=== PATIENT | female | born 1990 | race Caucasian/White ===

== ENCOUNTER 2019-10-22 19:05 | Emergency (ER) | payer MEDICAID ==
[~2019-10-22] VITALS: Ht 162.6 cm; Wt 115.2 kg
[2019-10-22 19:11] VITALS: BP 140/75
--- NOTE | 2019-10-22 19:16 | NUR ---
PT TAKEN TO BED 1
--- NOTE | 2019-10-22 19:23 | NUR ---
29 Y/O FEMALE C/O DRY/ITCHY PAINFUL RASH THROUGHOUT BODY X 2MONTHS. DENIES USE OF NEW LOTIONS/SOAPS, ETC. DENIES ANY NEW FOODS. -N/V/D. NOTED L HAND DRYNESS AND SMALL BUMPS. LEFT BREAST BUMPS WITH SOME REDNESS. NOTED LEG DRYNESS AND SCRATCHES. ERMD MADE AWARE OF STATUS. SIDE RAILSX1. HX: NONE RX: NONE NKDA
--- NOTE | 2019-10-22 19:33 | NUR ---
Dr. Moss examining patient.
[2019-10-22 19:50] VITALS: BP 135/69
--- NOTE | 2019-10-22 19:50 | NUR ---
Patient discharged with v/s stable. Written and verbal after care instructions given and explained. Patient alert, oriented and verbalized understanding of instructions. Ambulatory with steady gait. All questions addressed prior to discharge. ID band removed. Patient advised to follow up with PMD. Rx of HYDROCORTISONE 2.5% TOPICAL OINTMENT; ZYRTEC 10 MG given. Patient educated on indication of medication including possible reaction and side effects. Opportunity to ask questions provided and answered.
== END 2019-10-22 19:50 | disposition home or self-care (01) ==
LOC: MED 19:05
DX: L30.9 Dermatitis, unspecified (principal)
CPT/HCPCS: 99282

== ENCOUNTER 2020-04-27 14:55 | Emergency (ER) | payer MEDICAID ==
[~2020-04-27] VITALS: Ht 165.1 cm; Wt 113.4 kg
[2020-04-27 15:00] VITALS: BP 145/73
--- NOTE | 2020-04-27 15:05 | NUR ---
C/O INTERMITTENT CENTER UMBILLICAL/EPIGASTRIC "BURNING" ABD PAIN 5/10 X1 MONTH THAT IS MADE WORSE WITH EATING OR DRINKING ALCOHOL ACCOMPANIED BY OCCASIONAL N/V. DENIES FEVER/DIARRHEA. BOWEL SOUNDS PRESENT X4. ABD SOFT FLAT AND NON TENDER TO PALPATION. LBM TODAY AND REGULAR. BED IN LOW POSITION, SIDE RAIL UP X1.
[2020-04-27] MEDS ORDERED: DICYCLOMINE HCL LIQUID 20 MG, ALUMINUM HYD/MAG/SIMETHICONE 30 ML, LIDOCAINE VISCOUS 2% ... PO ONE ×3 (15:15)
[2020-04-27] MEDS ORDERED: DICYCLOMINE HCL LIQUID 10 MG/5 ML UDC ONE ×2 (15:17→15:18)
[2020-04-27] MEDS ORDERED: ALUMINUM HYD/MAG/SIMETHICONE 30 ML UDC ONE ×2 (15:17→15:18)
[2020-04-27] MEDS ORDERED: LIDOCAINE VISCOUS 2% 20 ML UDC ONE ×2 (15:17)
--- NOTE | 2020-04-27 16:03 | NUR ---
Dr. Guaman is evaluating the patient at bedside.
[2020-04-27 16:50] VITALS: BP 145/73
--- NOTE | 2020-04-27 17:08 | NUR ---
Patient discharged with v/s stable. Written and verbal after care instructions given and explained. Patient alert, oriented and verbalized understanding of instructions. Ambulatory with steady gait. All questions addressed prior to discharge. ID band removed. Patient advised to follow up with PMD. Rx of PRILOSEC, CIPRO, & IBUPROFEN given. Patient educated on indication of medication including possible reaction and side effects. Opportunity to ask questions provided and answered.
== END 2020-04-27 17:08 | disposition home or self-care (01) ==
LOC: MED 14:55
DX: N39.0 Urinary tract infection, site not specified (principal); I10 Essential (primary) hypertension
CPT/HCPCS: 81002; 81025; 99283

== ENCOUNTER 2021-02-02 13:28 | Emergency (ER) | payer MEDICAID, OTHER ==
[~2021-02-02] VITALS: Ht 162.6 cm; Wt 117.9 kg
[2021-02-02 13:35] VITALS: BP 175/100
--- NOTE | 2021-02-02 13:40 | NUR ---
Pt sent to ER lobby to wait for available bed.
[2021-02-02 14:12] LABS: BASOPHILS # (AUTO) 0.1 K/uL (0.00-0.22); EOSINOPHILS # (AUTO) 0.3 K/uL (0-0.4); EOSINOPHILS % (AUTO) 3.4 % (0.0-4.0); HEMATOCRIT 36.6 % (36-48); HEMOGLOBIN 12.7 g/dL (12.0-16.0); LYMPHOCYTES % (AUTO) 20.7 % (20.5-51.1); MEAN CORPUSCULAR HEMOGLOBIN 28 pg (27-31); MEAN CORPUSCULAR HGB CONC 35 g/dL (33-37); MEAN CORPUSCULAR VOLUME 80.1 fL (80-94); MONOCYTES # (AUTO) 0.5 K/uL (0.8-1.0); NEUTROPHILS # (AUTO) 6.7 K/uL (1.8-7.7); NEUTROPHILS % (AUTO) 69.9 % (42.2-75.2); PLATELET COUNT (AUTO) 283 K/uL (140-450); RED BLOOD CELL COUNT(AUTO) 4.58 MIL/uL (4.20-5.40); RED CELL DISTRIBUTION WIDTH 13.5 % (11.6-13.7); WHITE BLOOD COUNT (AUTO) 9.6 K/uL (4.8-10.8)
--- NOTE | 2021-02-02 14:16 | NUR ---
pt ambulated to bed 12 with steady gait
[2021-02-02 14:17] LABS: BILIRUBIN,URINE NEGATIVE (NEGATIVE); BLOOD, URINE 2+ (NEGATIVE); LEUKOCYTE ESTERASE ,URINE NEGATIVE (NEGATIVE); NITRITE, URINE NEGATIVE (NEGATIVE); PH,URINE 5.5 (5.0-9.0); UGLUCOSE 2+ (NEGATIVE)
--- NOTE | 2021-02-02 14:23 | NUR ---
33 Y/O FEMALE C/O PERIUMBILICAL ABD PAIN SINCE LAST SUNDAY, PATIENT ALSO REPORTS NAUSEA BUT IS NOT ABLE TO VOMIT. PT ALSO COMPLAINS OF HAVING FEVER LAST WEEK, BUT IS AFEBRILE NOW. PT STATES SHE WENT TO [facility] AND WAS DX WITH UTI/KIDNEY STONE ON SUNDAY. PT STATES SHE FINISHED ABX AND WAS GIVEN NORCO BUT STATES SHE DIDNT TAKE ANY. PT DID NOT FOLLOW UP WITH PCP. PT STATES PAIN IS WORSE NOW. PT RATES PAIN 6/10 THAT IS THROBBING, NONRADIATING, AND INTERMITTENT. PT DENIES TAKING ANYTHING FOR PAIN. ON ASSESSMENT, ABD IS ROUND, SOFT, AND TENDER ON PALPATION WITH ACTIVE BOWEL SOUNDS X4 QUADS. LBM YESTERDAY AND WAS NORMAL FOR PT. PT C/O DYSURIA BUT NO BLOOD. PT HAS LOSS OF APPEPITE. PT IS A/O X4 WITH EVEN AND UNLABORED RESPIRATIONS. PT LAYING IN BED WITH BED IN LOWEST POSITION, BRAKES LOCKED, X1 SIDERAIL UP. PMH: HTN NKDA
[2021-02-02 14:28] LABS: ALBUMIN 3.9 g/dL (3.4-5.0); ANION GAP 11.6 (8-16); CARBON DIOXIDE 27.4 mmol/L (21-32); CREATININE 0.6 mg/dL (0.6-1.3); TOTAL BILIRUBIN 0.3 mg/dL (0.0-1.0)
[2021-02-02 14:31] LABS: APPEARANCE,URINE CLEAR (CLEAR); COLOR,URINE YELLOW (YELLOW)
[2021-02-02 14:34] LABS: RBC,URINE 11-20 (MOD) /HPF (0-5); WBC,URINE 0-5 /HPF (0-5)
--- NOTE | 2021-02-02 15:13 | NUR ---
DR YEBOAH AT BEDSIDE
[2021-02-02] MEDS ORDERED: ALUMINUM HYD/MAG/SIMETHICONE 30 ML, DICYCLOMINE HCL LIQUID 20 MG, LIDOCAINE VISCOUS 2% ... PO ONE ×3 (15:20)
[2021-02-02] MEDS ORDERED: ACETAMINOPHEN EXTRA STRENGTH 500 MG TAB PO ONE (15:20)
[2021-02-02] MEDS ORDERED: DICYCLOMINE HCL LIQUID 10 MG/5 ML UDC ONE (15:28)
[2021-02-02] MEDS ORDERED: ALUMINUM HYD/MAG/SIMETHICONE 30 ML UDC ONE ×2 (15:28→15:31)
[2021-02-02] MEDS ORDERED: LIDOCAINE VISCOUS 2% 20 ML UDC ONE (15:28)
--- NOTE | 2021-02-02 15:38 | NUR ---
US AT BEDSIDE
--- NOTE | 2021-02-02 16:44 | NUR ---
PT LAYING IN BED WITH EVEN AND UNLABORED RESPIRATIONS. BED IN LOWEST POSITION, BRAKES LOCKED, X1 SIDERAIL UP. PT DENIES PAIN. WILL CONTINUE TO MONITOR.
[2021-02-02] MEDS ORDERED: FAMO-90 PO (17:25)
[2021-02-02] MEDS ORDERED: ONDA4TAB PO (17:25)
[2021-02-02 17:36] VITALS: BP 175/100
--- NOTE | 2021-02-02 17:36 | NUR ---
Patient discharged with v/s stable. Written and verbal after care instructions given and explained. Patient alert, oriented and verbalized understanding of instructions. Ambulatory with steady gait. All questions addressed prior to discharge. ID band removed. Patient advised to follow up with PMD. Rx of famotidine and ondansetron given. Patient educated on indication of medication including possible reaction and side effects. Opportunity to ask questions provided and answered.
== END 2021-02-02 17:36 | disposition home or self-care (01) ==
LOC: MED 13:28
DX: K29.70 Gastritis, unspecified, without bleeding (principal); I10 Essential (primary) hypertension; Z79.899 Other long term (current) drug therapy
CPT/HCPCS: 36415; 76705; 76770; 80053; 81001; 83690; 85025; 99285

== ENCOUNTER 2023-05-09 20:54 | Inpatient (IN) | payer OTHER ==
[~2023-05-09] VITALS: Ht 165.1 cm; Wt 104.3 kg
[~2023-05-09 20:54] MED LIST: FAMO-90 PO; ONDA4TAB PO
[2023-05-09 21:24] VITALS: BP 150/84; PULSE 101; RESP 18; TEMP 100.9; O2SAT 100
--- NOTE | 2023-05-09 21:32 | NUR ---
TO BED 2 FOLLOWING TRIAGE
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
[2023-05-09] MEDS ORDERED: NACL 0.9% 1,000 ML IV ONE (23:20)
[2023-05-09] MEDS ORDERED: KETOROLAC 30 MG/ML VIAL IVP ONE (23:20)
--- NOTE | 2023-05-09 23:20 | NUR ---
ER AT BEDSIDE
[2023-05-09 23:38] LABS: BASOPHILS # (AUTO) 0.1 K/uL (0.00-0.22); BASOPHILS % (AUTO) 0.6 % (0.0-2.0); EOSINOPHILS % (AUTO) 0.2 % (0.0-4.0); HEMATOCRIT 35.1 % (36-48); HEMOGLOBIN 11.8 g/dL (12.0-16.0); LYMPHOCYTES # (AUTO) 1.5 K/uL (2.5-16.5); LYMPHOCYTES % (AUTO) 16.8 % (20.5-51.1); MEAN CORPUSCULAR HEMOGLOBIN 27 pg (27-31); MEAN CORPUSCULAR HGB CONC 34 g/dL (33-37); MEAN CORPUSCULAR VOLUME 79.9 fL (80-94); MONOCYTES # (AUTO) 0.7 K/uL (0.8-1.0); MONOCYTES % (AUTO) 7.3 % (1.7-9.3); NEUTROPHILS # (AUTO) 6.8 K/uL (1.8-7.7); NEUTROPHILS % (AUTO) 75.1 % (42.2-75.2); PLATELET COUNT (AUTO) 255 K/uL (140-450); RED BLOOD CELL COUNT(AUTO) 4.39 MIL/uL (4.20-5.40); RED CELL DISTRIBUTION WIDTH 13.7 % (11.6-13.7); WHITE BLOOD COUNT (AUTO) 9.1 K/uL (4.8-10.8)
[2023-05-09 23:41] LABS: APPEARANCE,URINE CLEAR (CLEAR); BILIRUBIN,URINE NEGATIVE (NEGATIVE); BLOOD, URINE 1+ (NEGATIVE); COLOR,URINE YELLOW (YELLOW); LEUKOCYTE ESTERASE ,URINE 1+ (NEGATIVE); NITRITE, URINE NEGATIVE (NEGATIVE); UGLUCOSE 1+ (NEGATIVE)
[2023-05-09 23:49] LABS: RBC,URINE 0-5 /HPF (0-5)
--- NOTE | 2023-05-10 00:03 | NUR ---
NASAL SWAB COLLECTED & SENT TO LAB.
[2023-05-10 00:04] LABS: ALBUMIN 3.8 g/dL (3.4-5.0); ANION GAP 13.2 (8-16); CARBON DIOXIDE 26.9 mmol/L (21-32); CREATININE 0.9 mg/dL (0.6-1.3); POTASSIUM 3.1 mmol/L (3.5-5.1); TOTAL BILIRUBIN 0.5 mg/dL (0.0-1.0)
--- NOTE | 2023-05-10 00:10 | NUR ---
US AT BEDSIDE.
--- NOTE | 2023-05-10 00:33 | NUR ---
PATIENT TAKEN TO CT.
--- NOTE | 2023-05-10 00:50 | NUR ---
PATIENT BACK FROM CT.
[2023-05-10] MEDS ORDERED: ACETAMINOPHEN EXTRA STRENGTH 500 MG TAB PO ONE ×2 (01:35→04:40)
[2023-05-10] MEDS ORDERED: cefTRIAXone 1,000 MG VIAL ONE (01:50)
[2023-05-10] MEDS ORDERED: NACL 0.9% 1,000 ML IV ONE (04:55)
[2023-05-10] MEDS ORDERED: MORPHINE SULFATE 4 MG/ML SYR IVP ONE (05:10)
[2023-05-10] MEDS ORDERED: ONDANSETRON 4 MG/2 ML VIAL IVP PRN (07:40)
[2023-05-10] MEDS ORDERED: LORazepam 2 MG/ML VIAL IVP PRN (07:40)
--- NOTE | 2023-05-10 07:40 | NUR ---
Patient appears to be resting comfortably in bed. Vital Signs within normal limits. Respirations even and unlabored. DAUGHTER AT BEDSIDE RESTING WITH PT.
[2023-05-10] MEDS ORDERED: POTASSIUM CHLORIDE 10 MEQ TABER PO SCH (08:26)
--- NOTE | 2023-05-10 08:45 | NUR ---
PATIENT HAS BEEN SCREENED AND CATEGORIZED LOW NUTRITION RISK. PATIENT WILL BE SEEN WITHIN 7 DAYS OF ADMISSION. 05/17/[address] REVIEWED BY [address]AN SH[address]
[2023-05-10] MEDS: NACL 0.9% 1,000 ML IV SCH ×2 (09:26→15:40)
--- NOTE | 2023-05-10 09:40 | NUR ---
Patient will be admitted to care of SHAIKH WILLIAM. Admited to [facility]. Will go to room 112B. Belongings list completed. Report to JOSE ALFREDO CHOI.
--- NOTE | 2023-05-10 10:00 | NUR ---
PT ARRIVED TO [facility] UNIT 0945. ORIENTED PT TO ROOM, BATHROOM, VISITING HOURS, CALL LIGHT. PT STABLE UPON ARRIVAL, NO SIGNS OF DISTRESS. BED IN LOWEST POSITION, CALL LIGHT WITHIN REACH. NO FURTHER NEEDS ARE TO BE MET AT THIS TIME, WILL CONTINUE WITH PT CARE.
[2023-05-10 11:00] VITALS: PULSE 90; RESP 16; O2SAT 98
[2023-05-10] MEDS: ACETAMINOPHEN 325 MG TAB PO PRN ×2 (15:47→22:42)
[2023-05-10 16:00] VITALS: BP 121/64; PULSE 100; RESP 18; TEMP 100.9; O2SAT 98
[2023-05-10] MEDS ORDERED: ACETAMINOPHEN 100 ML IV PRN (17:05)
[2023-05-10] MEDS: MORPHINE SULFATE 2 MG/ML SYR IVP PRN (17:40)
--- NOTE | 2023-05-10 18:00 | NUR ---
PT IN DISTRESS, REPORTS PAIN 10/10 IN RIGHT THIGH, AND IS SWEATING. CHECKED TEMP, TEMP:100.4. PROVIDED ICE PACKS AND TYLENOL PO. PT COUGHED UP MEDICATION. INFORMED MD WILLIAM ORDERED IV TYLENOL. PROVIDED IV TYLENOL AND IV PAIN MEDICATION. PT TOLERATED OPERATIONS FORESTER WELL, NO LONGER IN DISTRESS - IS NOW RESTING IN BED. WILL CONTINUE WITH PT CARE, CALL LIGHT PLACED WITHIN REACH.
--- NOTE | 2023-05-10 19:34 | NUR ---
ENDORSED TO NIGHTSHIFT NURSE FOR CONTINUITY OF CARE. PT STABLE, RESTING IN BED, NO SIGNS OF DISTRESS. PT TEMP WITHIN NORMAL RANGE. CALL LIGHT WITHIN REACH.
--- NOTE | 2023-05-10 19:35 | NUR ---
RECEIVED BEDSIDE REPORT FROM STEPH VELIZ FOR CONTINUITY OF CARE. PATIENT IS STABLE IN BED. A&OX4. DENIES PAIN. ON ROOM AIR WITH NO APPARENT S/SX OF ACUTE DISTRESS. RESPIRATIONS EVEN AND UNLABORED. IV SITE TO THE LAC 20G IS PATENT/INTACT WITH NS INFUSING AT 125 ML/HR. MORNING SHIFT ENDORSED TO MONITOR TEMP TREND D/T FEVER DURING DAY SHIFT. PATIENT IS AMBULATORY AND CONTINENT. FAMILY AT BEDSIDE. POC AND WHITE COMMUNICATION BOARD UPDATED. ALL SAFETY MEASURES IN PLACE. BED IN LOW/LOCKED POSITION. CALL LIGHT WITHIN REACH. WILL CONTINUE TO MONITOR.
[2023-05-10 20:00] VITALS: BP 113/79; PULSE 86; RESP 18; TEMP 98.2; O2SAT 96
--- NOTE | 2023-05-10 20:00 | NUR ---
Patient's Plan of Care was discussed and reviewed with BELINDA PITTMAN:
[2023-05-10] MEDS: SENNA 8.6 MG TAB PO SCH (20:10)
--- NOTE | 2023-05-10 21:05 | NUR ---
ADMINISTERED SCHEDULED MEDS PER MD ORDER. TOLERATED WELL. PT DENIES PAIN BUT C/O OF FEELING WARM. TEMP IS 98.8F. PROVIDED ICE PACKS FOR COOLING MEASURE. PT HAS NO QUESTIONS AT THIS TIME. WILL RECHECK TEMP IN AN HOUR. RESPIRATIONS EVEN AND UNLABORED WITH NO APPARENT S/SX OF ACUTE DISTRESS. WHITE COMMUNICATION BOARD UPDATED. ALL SAFETY MEASURES IN PLACE. CALL LIGHT WITHIN REACH. BED IN LOW/LOCKED POSITION. WILL CONTINUE TO MONITOR.
--- NOTE | 2023-05-10 22:42 | NUR ---
PATIENT STATES SHE FEELS WARM. CHECKED TEMPERATURE AND HAS 100.3 F. ADMINISTERED TYLENOL PRN PER MD ORDER. TOLERATED WELL. WILL REASSESS IN AN HOUR. DENIES PAIN AT THIS TIME. RESPIRATIONS EVEN AND UNLABORED WITH NO APPARENT S/SX OF ACUTE DISTRESS. WHITE COMMUNICATION BOARD UPDATED. ALL SAFETY MEASURES IN PLACE. CALL LIGHT WITHIN REACH. ENCOURAGED TO USE CALL LIGHT FOR ANY NEEDS/ASSISTANCE. BED IN LOW/LOCKED POSITION. WILL CONTINUE TO MONITOR.
--- NOTE | 2023-05-11 00:01 | NUR ---
RECHECKED PATIENT'S TEMP: 101.2 F VIA ORAL ROUTE. PRN NOT EFFECTIVE. ICE PACKS PROVIDED. ENDORSED TO CHARGE NURSE AND AGREED TO PLACE A FAN IN PATIENT'S ROOM. CONTACTED SECURITY AND ARRIVED WITH FAN. WILL REASSESS TEMP IN AN HOUR. PT DENIES PAIN AT THIS TIME. RESPIRATIONS EVEN AND UNLABORED WITH NO APPARENT S/SX OF ACUTE DISTRESS. WHITE COMMUNICATION BOARD UPDATED. ALL SAFETY MEASURES IN PLACE. CALL LIGHT WITHIN REACH. ENCOURAGED TO USE CALL LIGHT FOR ANY NEEDS/ASSISTANCE. BED IN LOW/LOCKED POSITION. WILL CONTINUE TO MONITOR.
--- NOTE | 2023-05-11 01:01 | NUR ---
PATIENT'S ROOM NOW COOL D/T THERMOSTAT ADJUSTMENT. PATIENT'S TEMPERATURE IS 97.9 F AT THIS TIME. PATIENT IS RESTING AND ASLEEP. CHEST IS RISING AND FALLING SYMMETRICALLY. RESPIRATIONS EVEN AND UNLABORED WITH NO APPARENT S/SX OF ACUTE DISTRESS. WHITE COMMUNICATION BOARD UPDATED. ALL SAFETY MEASURES IN PLACE. CALL LIGHT WITHIN REACH. BED IN LOW/LOCKED POSITION. WILL CONTINUE TO MONITOR.
[2023-05-11] MEDS: cefTRIAXone 2,000 MG in DEXTROSE 5% 100 ML IV SCH (01:36)
--- NOTE | 2023-05-11 02:43 | NUR ---
PATIENT SITTING AT THE EDGE OF BED. PATIENT STATED SHE FEELS MUCH BETTER AND NO LONGER FEELS WARM. PATIENT VERBALIZED CONTINUOUS PAIN IN RIGHT LEG RADIATING DOWN TO IZQUIERDO 7/10. OFFERED MEDICATION BUT PATIENT REFUSED AND STATED, "I DON'T WANT TO BE ADDICTED TO PAIN MEDS." REINFORCED PATIENT TEACHING REGARDING PRN PAIN MEDICATIONS PER MD ORDER. PATIENT VERBALIZED SHE WILL REQUEST FOR PRN PAIN MEDS IF PAIN IS NO LONGER TOLERABLE. RN LINDA ALEJANDRO AWARE. PATIENT ALSO C/O OF SLIGHT NAUSEA. REINFORCED PATIENT TEACHING REGARDING PRN. PATIENT VERBALIZED SHE WILL REQUEST PRN MEDS IF NO LONGER TOLERABLE. PROVIDED EMESIS BAG AND ENCOURAGED DEEP BREATHING AND RAISING HOB FOR COMFORT. RESPIRATIONS EVEN AND UNLABORED WITH NO APPARENT S/SX OF ACUTE DISTRESS. WHITE COMMUNICATION BOARD UPDATED. ALL SAFETY MEASURES IN PLACE. CALL LIGHT WITHIN REACH. ENCOURAGED PATIENT TO USE CALL LIGHT FOR ANY NEEDS/ASSISTANCE. BED IN LOW/LOCKED POSITION. WILL CONTINUE TO MONITOR.
[2023-05-11 04:00] VITALS: BP 123/88; PULSE 71; RESP 18; TEMP 97.9; O2SAT 96
--- NOTE | 2023-05-11 05:05 | NUR ---
PATIENT SLEEPING COMFORTABLY IN BED. CHEST IS RISING AND FALLING SYMMETRICALLY. RESPIRATIONS EVEN AND UNLABORED WITH NO APPARENT S/SX OF ACUTE DISTRESS. ALL NEEDS MET AT THIS TIME. WHITE COMMUNICATION BOARD UPDATED. ALL SAFETY MEASURES IN PLACE. CALL LIGHT WITHIN REACH. BED IN LOW/LOCKED POSITION. SIDE RAILS X2 UP. WILL CONTINUE TO MONITOR.
--- NOTE | 2023-05-11 07:08 | NUR ---
ENDORSED PATIENT TO STEPH STONE FOR CONTINUITY OF CARE. PATIENT IS STABLE.
--- NOTE | 2023-05-11 07:09 | NUR ---
RECEIVED REPORT FROM WOOL FLEECE GRADER NURSE FOR CONTINUITY OF CARE. PT IS ASLEEP, AWAKEN BY NAME. NO SIGN OF DISTRESS, CALL LIGHT WITHIN REACH.
[2023-05-11 07:23] LABS: ANION GAP 13.6 (8-16); CARBON DIOXIDE 23.7 mmol/L (21-32); CREATININE 0.6 mg/dL (0.6-1.3); POTASSIUM 3.3 mmol/L (3.5-5.1); TOTAL BILIRUBIN 0.6 mg/dL (0.0-1.0)
[2023-05-11 07:43] LABS: BASOPHILS % (AUTO) 0.8 % (0.0-2.0); EOSINOPHILS % (AUTO) 0.2 % (0.0-4.0); HEMATOCRIT 32.6 % (36-48); HEMOGLOBIN 11.1 g/dL (12.0-16.0); LYMPHOCYTES # (AUTO) 0.8 K/uL (2.5-16.5); MEAN CORPUSCULAR HEMOGLOBIN 27 pg (27-31); MEAN CORPUSCULAR HGB CONC 34 g/dL (33-37); MEAN CORPUSCULAR VOLUME 80.5 fL (80-94); MONOCYTES # (AUTO) 0.3 K/uL (0.8-1.0); MONOCYTES % (AUTO) 5.7 % (1.7-9.3); NEUTROPHILS # (AUTO) 4.3 K/uL (1.8-7.7); NEUTROPHILS % (AUTO) 79.3 % (42.2-75.2); PLATELET COUNT (AUTO) 227 K/uL (140-450); RED BLOOD CELL COUNT(AUTO) 4.05 MIL/uL (4.20-5.40); RED CELL DISTRIBUTION WIDTH 13.6 % (11.6-13.7); WHITE BLOOD COUNT (AUTO) 5.5 K/uL (4.8-10.8)
[2023-05-11 08:00] VITALS: PULSE 82; RESP 20; O2SAT 97
[2023-05-11] MEDS: SENNA 8.6 MG TAB PO SCH ×2 (09:00→21:03)
[2023-05-11] MEDS: NACL 0.9% 1,000 ML IV SCH ×4 (11:53→23:46)
[2023-05-11] MEDS: MORPHINE SULFATE 2 MG/ML SYR IVP PRN (16:12)
--- NOTE | 2023-05-11 19:08 | NUR ---
GAVE BEDSIDE REPORT TO INSIDE SALES LEAD NURSE FOR CONTINUITY OF CARE, PT IS SLEEPING EASILY AWAKEN BY NAME, NO SIGN OF DISTRESS, CALL LIGHT WITHIN REACH. Addendum: 05/11/23 at 1951 by BERTHA RAO RN GAVE BEDSIDE REPORT TO INSIDE SALES LEAD NURSE FOR CONTINUITY OF CARE, PT IS SITTING ON A CHAIR TALKING TO FAMILY, NO SIGN OF DISTRESS, CALL LIGHT WITHIN REACH.
--- NOTE | 2023-05-11 19:09 | NUR ---
RECEIVED PT FROM MORNING SHIFT NURSE. PT IS AOX4, AMBULATORY, ABLE TO VERBALIZE NEEDS AND ABLE TO FOLLOW COMMANDS. PT IS ON ROOM AIR AND ON REGULAR DIET. PT HAS IV ON LEFT AC GAUGE 20 RUNNING WITH NS AT 125 ML/HR. PT SKIN IS INTACT. NO COMPLAIN OF PAIN. NO S/S OF RESPIRATORY DISTRESS NOTED. ALL SAFETY MEASURES IMPLEMENTED. BED IN LOW POSITION, BED WHEELS ON LOCK AND CALL LIGHT WITHIN REACH.
[2023-05-11 20:00] VITALS: BP 153/91; PULSE 81; RESP 18; TEMP 98.2; O2SAT 99
[2023-05-11] MEDS ORDERED: POTASSIUM CHLORIDE 10 MEQ TABER PO PRN (20:00)
--- NOTE | 2023-05-11 21:03 | NUR ---
SCHEDULED AND PRESCRIBED MEDICATION WAS GIVEN TO PT PER MD ORDER. 40 MEQ K-DUR WAS ALSO GIVEN DUE TO K LEVEL OF 3.3. ALL SAFETY MEASURES IMPLEMENTED. BED IN LOW POSITION, BED WHEELS ON LOCK AND CALL LIGHT WITHIN REACH.
[2023-05-11] MEDS: ACETAMINOPHEN 325 MG TAB PO PRN (23:50)
--- NOTE | 2023-05-11 23:50 | NUR ---
TYLENOL WAS GIVEN TO PT DUE TO HEADACHE. ALL SAFETY MEASURES IMPLEMENTED. BED IN LOW POSITION, BED WHEELS ON LOCK AND CALL LIGHT WITHIN REACH.
[2023-05-12] MEDS: cefTRIAXone 2,000 MG in DEXTROSE 5% 100 ML IV SCH (02:13)
--- NOTE | 2023-05-12 02:13 | NUR ---
SCHEDULED AND PRESCRIBED MEDICATION WAS GIVEN TO PT PER MD ORDER. ALL SAFETY MEASURES IMPLEMENTED. BED IN LOW POSITION, BED WHEELS ON LOCK AND CALL LIGHT WITHIN REACH.
[2023-05-12 04:00] VITALS: BP 141/78; PULSE 65; RESP 18; TEMP 97.5; O2SAT 99
--- NOTE | 2023-05-12 04:00 | NUR ---
PT IS ON SLEEP. CHEST RISE AND FALL SYMMETRICALLY NOTED. RESPIRATION IS EVEN AND UNLABORED. ALL SAFETY MEASURES IMPLEMENTED. BED WHEELS ON LOCK, BED IN LOW POSITION AND CALL LIGHT WITHIN REACH.
--- NOTE | 2023-05-12 07:18 | NUR ---
PT IS STABLE. ENDORSED PT TO MORNING SHIFT FOR CONTINUITY OF CARE.
--- NOTE | 2023-05-12 07:19 | NUR ---
RECEIVED BEDSIDE REPORT FROM PROFESSOR OF SPECIAL EDUCATION NURSE FOR CONTINUITY OF CARE. PT IS AWAKE, NO SIGNS OF DISTRESS. CALL LIGHT WITHIN REACH.
[2023-05-12 08:00] VITALS: PULSE 78; RESP 18; O2SAT 96
[2023-05-12] MEDS: SENNA 8.6 MG TAB PO SCH ×2 (09:00→20:46)
[2023-05-12] MEDS: NACL 0.9% 1,000 ML IV SCH ×3 (09:06→23:22)
[2023-05-12 10:26] LABS: BASOPHILS # (AUTO) 0.1 K/uL (0.00-0.22); EOSINOPHILS # (AUTO) 0.1 K/uL (0-0.4); EOSINOPHILS % (AUTO) 2.5 % (0.0-4.0); HEMATOCRIT 30.9 % (36-48); HEMOGLOBIN 10.4 g/dL (12.0-16.0); LYMPHOCYTES # (AUTO) 1.4 K/uL (2.5-16.5); LYMPHOCYTES % (AUTO) 27.1 % (20.5-51.1); MEAN CORPUSCULAR HEMOGLOBIN 27 pg (27-31); MEAN CORPUSCULAR HGB CONC 34 g/dL (33-37); MEAN CORPUSCULAR VOLUME 80.4 fL (80-94); MONOCYTES # (AUTO) 0.5 K/uL (0.8-1.0); MONOCYTES % (AUTO) 9.1 % (1.7-9.3); NEUTROPHILS # (AUTO) 3.1 K/uL (1.8-7.7); NEUTROPHILS % (AUTO) 60.3 % (42.2-75.2); PLATELET COUNT (AUTO) 220 K/uL (140-450); RED BLOOD CELL COUNT(AUTO) 3.84 MIL/uL (4.20-5.40); RED CELL DISTRIBUTION WIDTH 13.6 % (11.6-13.7); WHITE BLOOD COUNT (AUTO) 5.1 K/uL (4.8-10.8)
[2023-05-12 10:36] LABS: ANION GAP 10.4 (8-16); CARBON DIOXIDE 25.8 mmol/L (21-32); CREATININE 0.5 mg/dL (0.6-1.3); POTASSIUM 4.2 mmol/L (3.5-5.1)
--- NOTE | 2023-05-12 14:30 | NUR ---
PT WAS IN PAIN BUT REFUSES TO TAKE MED AND VERBALIZES SHE CAN MANAGE IT.
[2023-05-12] MEDS ORDERED: CIPR500T4 PO (19:15)
--- NOTE | 2023-05-12 19:25 | NUR ---
GAVE BEDSIDE REPORT FROM CLINICAL ASSOCIATE NURSE FOR CONTINUITY OF CARE. PT IS AWAKE AND ALERT, NO SIGN OF DISTRESS. CALL LIGHT WITHIN REACH.
[2023-05-12 20:00] VITALS: BP 156/93; PULSE 74; RESP 18; TEMP 97.3; O2SAT 100
--- NOTE | 2023-05-12 22:00 | NUR ---
CHANGED DRESSING OF PT'S IV. NO COMPLAIN OF PAIN. NO S/S OF RESPIRATORY DISTRESS NOTED. ALL SAFETY MEASURES IMPLEMENTED. BED IN LOW POSITION, BED WHEELS ON LOCK AND CALL LIGHT WITHIN REACH.
[2023-05-12] MEDS: ACETAMINOPHEN 325 MG TAB PO PRN (23:20)
--- NOTE | 2023-05-12 23:20 | NUR ---
PRN TYLENOL WAS GIVEN TO PT DUE TO HEADACHE. NO S/S OF RESPIRATORY DISTRESS NOTED. ALL SAFETY MEASURES IMPLEMENTED. BED IN LOW POSITION, BED WHEELS ON LOCK AND CALL LIGHT WITHIN REACH.
[2023-05-13] MEDS: cefTRIAXone 2,000 MG in DEXTROSE 5% 100 ML IV SCH (02:19)
[2023-05-13 04:00] VITALS: BP 132/80; PULSE 63; RESP 18; TEMP 97.3; O2SAT 98
--- NOTE | 2023-05-13 04:00 | NUR ---
PT IS ON SLEEP. CHEST RISE AND FALL SYMMETRICALLY NOTE. RESPIRATION IS EVEN AND UNLABORED. ALL SAFETY MEASURES IMPLEMENTED. BED IN LOW POSITION, BED WHEELS ON LOCK AND CALL LIGHT WITHIN REACH.
--- NOTE | 2023-05-13 07:12 | NUR ---
RECEIVED BEDSIDE REPORT FORM CUT FILER FOR CONTINUITY OF CARE. ALERT AND ORIENTED X 4. RESP. EVEN AND UNLABORED. ON ROOM AIR. IVF INFUSING WELL. NO C/O PAIN OR DISCOMFORT. CALL LIGHT KEPT WITHIN REACH. WILL CONTINUE TO MONITOR.
--- NOTE | 2023-05-13 07:16 | NUR ---
PT IS STABLE. ENDORSED PT TO MORNING SHIFT NURSE FOR CONTINUITY OF CARE.
[2023-05-13] MEDS: NACL 0.9% 1,000 ML IV SCH (07:40)
[2023-05-13 08:00] VITALS: BP 123/64; PULSE 65; RESP 17; TEMP 97.5; O2SAT 97
[2023-05-13] MEDS: SENNA 8.6 MG TAB PO SCH (08:39)
--- NOTE | 2023-05-13 08:39 | NUR ---
SCHEDULED SENNA NOT GIVEN. PT REFUSED. EXPLAINED RISK AND BENEFITS BUT STILL REFUSED.
--- NOTE | 2023-05-13 12:20 | NUR ---
PT LEFT. DISCHARGE TO HOME. TRANSPORTED VIA PRIVATE CAR. ALERT AND ORIENTED X 4. AMBULATORY. RESP. EVEN AND UNLABORED. SKIN INTACT. ID BAND AND IV REMOVED. PERSONAL BELONGINGS TAKEN. REMAINS STABLE.
== END 2023-05-13 12:20 | disposition home or self-care (01) | DRG 720 ==
LOC: MED 20:54 → MTU 05-10 07:43
PROVIDERS: ADMIT Hospitalist; ATTEND Hospitalist
DX: A41.9 Sepsis, unspecified organism (principal); N12 Tubulo-interstitial nephritis, not specified as acute or chronic; B96.1 Klebsiella pneumoniae [K. pneumoniae] as the cause of diseases classified elsewhere; D64.9 Anemia, unspecified; I10 Essential (primary) hypertension; Z20.822 Contact with and (suspected) exposure to COVID-19; R00.0 Tachycardia, unspecified; E66.9 Obesity, unspecified; N20.0 Calculus of kidney; Z68.38 Body mass index [BMI] 38.0-38.9, adult
CPT/HCPCS: 36415; 80048; 80053; 81001; 82553; 83690; 83735; 85025; 87040; 87081; 87086; 93971; 96361; 96365; 96375; 99285; J0696; J1885; J2270; J2405; J7030; J7060; Q0092

== ENCOUNTER 2024-04-08 16:27 | Emergency (ER) | payer OTHER ==
[~2024-04-08] VITALS: Ht 162.6 cm; Wt 111.6 kg
[~2024-04-08 16:27] MED LIST changes: +CIPR500T4 PO
[2024-04-08 17:05] VITALS: BP 128/86; PULSE 99; RESP 17; TEMP 98.9; O2SAT 97
[2024-04-08 17:38] LABS: APPEARANCE,URINE SL CLOUDY (CLEAR); BILIRUBIN,URINE NEGATIVE (NEGATIVE); BLOOD, URINE NEGATIVE (NEGATIVE); COLOR,URINE YELLOW (YELLOW); LEUKOCYTE ESTERASE ,URINE NEGATIVE (NEGATIVE); NITRITE, URINE NEGATIVE (NEGATIVE); PROTEIN,URINE TRACE (NEGATIVE); UGLUCOSE NEGATIVE (NEGATIVE)
[2024-04-08] MEDS: NACL 0.9% 1,000 ML IV SCH (17:45)
[2024-04-08 17:46] LABS: EOSINOPHILS # (AUTO) 0.1 K/uL (0-0.4); EOSINOPHILS % (AUTO) 1.2 % (0.0-4.0); HEMATOCRIT 39.8 % (36-48); HEMOGLOBIN 13.9 g/dL (12.0-16.0); MEAN CORPUSCULAR HEMOGLOBIN 29 pg (27-31); MEAN CORPUSCULAR HGB CONC 35 g/dL (33-37); MEAN CORPUSCULAR VOLUME 81.3 fL (80-94); MONOCYTES # (AUTO) 0.4 K/uL (0.8-1.0); MONOCYTES % (AUTO) 5.2 % (1.7-9.3); NEUTROPHILS % (AUTO) 81.6 % (42.2-75.2); PLATELET COUNT (AUTO) 268 K/uL (140-450); RED BLOOD CELL COUNT(AUTO) 4.89 MIL/uL (4.20-5.40); RED CELL DISTRIBUTION WIDTH 13.4 % (11.6-13.7); WHITE BLOOD COUNT (AUTO) 8.6 K/uL (4.8-10.8)
[2024-04-08 18:04] LABS: ANION GAP 14.5 (8-16); CALCIUM 8.9 mg/dL (8.5-10.1); CARBON DIOXIDE 25.2 mmol/L (21-32); CREATININE 0.7 mg/dL (0.6-1.3); POTASSIUM 3.7 mmol/L (3.5-5.1)
[2024-04-08 18:06] LABS: FLU A ANTIGEN negative (NEGATIVE); FLU B ANTIGEN NEGATIVE (NEGATIVE)
[2024-04-08 18:08] LABS: INR 0.97 (0.8-1.2); PARTIAL THROMBOPLASTIN TIME 30.2 secs (22-35.6); PROTHROMBIN TIME 10.2 secs (10.8-13.4)
[2024-04-08 18:17] LABS: ALBUMIN 4.1 g/dL (3.4-5.0); BILIRUBIN,DIRECT 0.2 mg/dL (0.0-0.3); TOTAL BILIRUBIN 0.8 mg/dL (0.0-1.0); TOTAL PROTEIN, SERUM 8.2 g/dL (6.4-8.2)
[2024-04-08] MEDS: ONDANSETRON 4 MG/2 ML VIAL IVP ONE (18:39)
[2024-04-08] MEDS: FAMOTIDINE 20 MG/2 ML VIAL IVP ONE (18:42)
[2024-04-08] MEDS: KETOROLAC 30 MG/ML VIAL IVP ONE (19:43)
[2024-04-08 19:59] VITALS: BP 122/62; PULSE 80; RESP 13; TEMP 98; O2SAT 99
[2024-04-08] MEDS ORDERED: FAMO-90 PO (21:47)
[2024-04-08] MEDS ORDERED: BEN10 PO (21:47)
[2024-04-08] MEDS ORDERED: ONDA-188 SL (21:47)
== END 2024-04-08 21:57 | disposition home or self-care (01) ==
LOC: MED 16:27
DX: R11.2 Nausea with vomiting, unspecified (principal); R10.84 Generalized abdominal pain; R53.1 Weakness; R19.7 Diarrhea, unspecified; Z20.822 Contact with and (suspected) exposure to COVID-19; Z79.1 Long term (current) use of non-steroidal anti-inflammatories (NSAID); Z79.2 Long term (current) use of antibiotics; Z79.899 Other long term (current) drug therapy
CPT/HCPCS: 36415; 74176; 80048; 80076; 81003; 81025; 83690; 85025; 85610; 85730; 87040; 87086; 87426; 87804; 96361; 96374; 96375; 99285; J1885; J2405; J3490; J7030